=== PATIENT | female | born 1950 | race Caucasian/White ===

== ENCOUNTER 2023-03-15 08:24 | Day surgery (SDC) | payer MEDICARE, MEDICAID ==
[~2023-03-15] VITALS: Ht 170.2 cm; Wt 106.0 kg
[2023-03-15] MEDS ORDERED: normal saline 1000ml 1,000 ML IV PRN (08:45)
[2023-03-15 08:48] VITALS: BP 118/65; PULSE 89; RESP 16; TEMP 98.1; O2SAT 94
[2023-03-15 09:23] LABS: BASOPHILS # (AUTO) 0.1 X10'3 (0-0.2); BASOPHILS % (AUTO) 0.8 % (0-1); EOSINOPHILS # (AUTO) 0.2 X10'3 (0-0.9); EOSINOPHILS % (AUTO) 1.7 % (0-6); HEMATOCRIT 39.7 % (35.0-45.0); HEMOGLOBIN 13.2 g/dl (12.0-16.0); LYMPHOCYTES # (AUTO) 1.6 X10'3 (1.1-4.8); LYMPHOCYTES % (AUTO) 17.1 % (21-51); MEAN CORPUSCULAR HEMOGLOBIN 30.7 PG (27.0-31.0); MEAN CORPUSCULAR HGB CONC 33.3 g/dL (33.0-36.5); MEAN CORPUSCULAR VOLUME 92.2 FL (78-98); MEAN PLATELET VOLUME 9.3 FL (7.4-10.4); MONOCYTES # (AUTO) 0.8 X10'3 (0-0.9); MONOCYTES % (AUTO) 8.3 % (2-12); NEUTROPHILS # (AUTO) 6.8 X10'3 (1.8-7.7); NEUTROPHILS % (AUTO) 72.1 % (42-75); PLATELET COUNT 264 X10'3 (140-440); RED CELL DISTRIBUTION WIDTH 14.3 % (11.5-14.5); WHITE BLOOD COUNT 9.4 X10'3 (4.5-11.0)
[2023-03-15 09:38] LABS: PROTHROMBIN TIME 10.5 SECONDS (9.0-12.0)
[2023-03-15] MEDS ORDERED: ATOR40TA72 PO (09:43)
[2023-03-15] MEDS ORDERED: CARV12.545 PO (09:43)
[2023-03-15] MEDS ORDERED: BUDE10.2 PO (09:43)
[2023-03-15] MEDS ORDERED: TIOT18CA3 INH (09:43)
[2023-03-15] MEDS ORDERED: ASPI81TA52 PO (09:43)
[2023-03-15] MEDS ORDERED: CARV-50 PO (09:43)
[2023-03-15] MEDS ORDERED: LISI40TA13 PO (09:43)
[2023-03-15] MEDS ORDERED: ALBU18HF2 INH (09:43)
[2023-03-15] MEDS ORDERED: ALLO100T PO (09:43)
[2023-03-15] MEDS ORDERED: FURO40TA4 PO (09:43)
[2023-03-15 10:00] VITALS: RESP 16; O2SAT 94
== END 2023-03-15 11:17 | disposition home or self-care (01) ==
LOC: SSTAY O 08:24
PROVIDERS: ATTEND Radiology Diagnostic Radiology
DX: R91.8 Other nonspecific abnormal finding of lung field (principal); Z53.8 Procedure and treatment not carried out for other reasons; Z79.01 Long term (current) use of anticoagulants
CPT/HCPCS: 36415; 85025; 85610; J7030; A4615

== ENCOUNTER 2023-05-12 08:24 | Day surgery (SDC) | payer MEDICARE, MEDICAID ==
[~2023-05-12] VITALS: Ht 170.2 cm; Wt 105.0 kg
[2023-05-12] VITALS (13 sets, daily range): BP systolic 109–136; BP diastolic 46–72; PULSE 73–104; RESP 12–22; TEMP 97.6; O2SAT 92–99
[~2023-05-12 08:24] MED LIST: ALBU18HF2 INH; ALLO100T PO; ASCO500C17 PO; ASPI81TA52 PO; ATOR40TA72 PO; BUDE10.2 PO; CALC-97 PO; CARV12.545 PO; DOCUMENT DATE & TIME OF BETA-BLOCKER PO ONE; FURO40TA4 PO; LISI40TA13 PO; TIOT18CA3 INH; albuterol 2.5 MG/3 ML nebule NEB ONE; famotidine 20mg tablet PO ONE; ringers solution, lacted 1,000 ML IV SCH
[2023-05-12] MEDS ORDERED: ringers solution, lacted 1,000 ML IV SCH (09:55)
[2023-05-12] MEDS ORDERED: DOBUTamine-DoBUTrex 500mg/D5W 250 ML IV SCH (09:55)
[2023-05-12] MEDS ORDERED: ondansetron/PF 4mg/2ml inj IV PRN (09:55)
[2023-05-12] MEDS ORDERED: enalaprilat dihydrate 2.5mg/2ml vial IV PRN (09:55)
[2023-05-12] MEDS ORDERED: fentaNYL/PF 50MCG/1 ML 2ML syringe IV PRN ×2 (09:55)
[2023-05-12] MEDS ORDERED: morphine 4 MG/ML inj SYRINge IV PRN (09:55)
[2023-05-12] MEDS ORDERED: morphine 2 MG/ML inj. syringe IV PRN (09:55)
[2023-05-12] MEDS ORDERED: hydrALAZINE 20mg/ml inj. IV PRN (09:55)
[2023-05-12 11:21] LABS: HEMOGLOBIN 12.6 g/dl (12.0-16.0); MEAN PLATELET VOLUME 9.7 FL (7.4-10.4)
[2023-05-12 11:22] LABS: BASOPHILS # (AUTO) 0.1 X10'3 (0-0.2); EOSINOPHILS # (AUTO) 0.1 X10'3 (0-0.9); EOSINOPHILS % (AUTO) 1.6 % (0-6); HEMATOCRIT 37.9 % (35.0-45.0); LYMPHOCYTES # (AUTO) 1.5 X10'3 (1.1-4.8); LYMPHOCYTES % (AUTO) 16.2 % (21-51); MEAN CORPUSCULAR HEMOGLOBIN 30.4 PG (27.0-31.0); MEAN CORPUSCULAR HGB CONC 33.3 g/dL (33.0-36.5); MEAN CORPUSCULAR VOLUME 91.3 FL (78-98); MONOCYTES # (AUTO) 0.7 X10'3 (0-0.9); MONOCYTES % (AUTO) 8.3 % (2-12); NEUTROPHILS # (AUTO) 6.5 X10'3 (1.8-7.7); NEUTROPHILS % (AUTO) 72.9 % (42-75); PLATELET COUNT 209 X10'3 (140-440); RED BLOOD COUNT 4.15 X10'6 (4.20-5.60); RED CELL DISTRIBUTION WIDTH 12.8 % (11.5-14.5)
[2023-05-12 11:36] LABS: ALANINE AMINOTRANSFERASE 25 U/L (12-78); ALBUMIN 3.6 G/DL (3.4-5.0); ALKALINE PHOSPHATASE 61 IU/L (46-116); ANION GAP 8 (8-16); ASPARTATE AMINO TRANSFERASE 18 U/L (10-37); BILIRUBIN,TOTAL 0.3 MG/DL (0.1-1.0); BLOOD UREA NITROGEN 25 MG/DL (7-18); BUN/CREATININE RATIO 20.8 (10.0-20.0); CALCIUM 9.7 MG/DL (8.5-10.1); CHLORIDE 104 MMOL/L (99-107); GLUCOSE 114 MG/DL (70-104); POTASSIUM 3.9 MMOL/L (3.5-5.1); SODIUM 139 MMOL/L (135-145); TOTAL CARBON DIOXIDE 26.9 MMOL/L (24-32); TOTAL PROTEIN 7.2 G/DL (6.4-8.2); eCRCL 41 ML/MIN; eGFR 44 ML/MIN
[2023-05-12] MEDS ORDERED: MIDAZolam 1 MG/ML 5ML VIAL ONE (12:06)
[2023-05-12] MEDS ORDERED: fentaNYL/PF 50MCG/1 ML 2ML syringe ONE (12:06)
[2023-05-12] MEDS ORDERED: rocuronium 10mg/ml inj IV ONE (12:07)
[2023-05-12] MEDS ORDERED: propofol inj 20 ML IV ONE (12:07)
[2023-05-12] MEDS ORDERED: LIDOcaine 2% (20mg/ml) 5ml vial ONE (12:07)
[2023-05-12] MEDS ORDERED: dexamethasone sod phosphate 10mg/ml inj ONE (12:24)
[2023-05-12] MEDS ORDERED: sugammadex 200mg/2ml injection IV ONE (12:24)
[2023-05-12] MEDS ORDERED: ondansetron/PF 4mg/2ml inj ONE (12:24)
[2023-05-12] MEDS ORDERED: sevoflurane 250ml liquid IH ONE (12:24)
[2023-05-12] MEDS ORDERED: albumin (Human) 5% 250ml 250 ML IV ONE (13:08)
[2023-05-12] MEDS ORDERED: phenylephrine 10mg/ml inj. -priapism dosing ONE (13:12)
[2023-05-12] MEDS ORDERED: LIDOcaine 40mg/ml topical solution IH STA (14:10)
[2023-05-12] MEDS ORDERED: LIDOCAINE 4% (40MG/ML) topical solution 50ml **BRONCH ONLY ONE (14:24)
== END 2023-05-12 11:05 | disposition home or self-care (01) ==
LOC: PAS 08:24
PROVIDERS: ATTEND Internal Medicine Critical Care Medicine
DX: R91.8 Other nonspecific abnormal finding of lung field (principal); C34.11 Malignant neoplasm of upper lobe, right bronchus or lung; J44.9 Chronic obstructive pulmonary disease, unspecified; E78.5 Hyperlipidemia, unspecified; I13.0 Hypertensive heart and chronic kidney disease with heart failure and stage 1 through stage 4 chronic kidney disease, or unspecified chronic kidney disease; I50.32 Chronic diastolic (congestive) heart failure; N18.30 Chronic kidney disease, stage 3 unspecified; K21.9 Gastro-esophageal reflux disease without esophagitis; E66.01 Morbid (severe) obesity due to excess calories; Z68.37 Body mass index [BMI] 37.0-37.9, adult; I42.8 Other cardiomyopathies; M10.9 Gout, unspecified; Z85.3 Personal history of malignant neoplasm of breast; Z90.13 Acquired absence of bilateral breasts and nipples; Z88.8 Allergy status to other drugs, medicaments and biological substances; Z98.890 Other specified postprocedural states; Z82.49 Family history of ischemic heart disease and other diseases of the circulatory system; Z83.3 Family history of diabetes mellitus; Z82.3 Family history of stroke
CPT/HCPCS: 31628; 31629; 31653; 36415; 71045; 71250; 80053; 82948; 85025; 94640; 94760; J1100; J1250; J2250; J2270; J2370; J2405; J2704; J3010; J3490; J7040; J7120; P9045; Z7506; Z7508; Z7512; 31622; 31623; 31624; 31625; 31626; 31627; 31654; A4615; A4618